=== PATIENT | female | born 1950 | race Caucasian/White ===

== ENCOUNTER 2016-09-13 10:43 | Emergency (ER) | payer MEDICARE, MEDICAID ==
[~2016-09-13] VITALS: Ht 152.4 cm; Wt 92.7 kg
[~2016-09-13 10:43] MED LIST: METF500T4 PO
[2016-09-13 10:50] VITALS: BP 150/80; PULSE 76; RESP 16; O2SAT 99
[2016-09-13 11:31] LABS: BASOPHILS % (AUTO) 0.5 % (0-3); EOSINOPHILS % (AUTO) 0.7 % (0-5); Mean Corpuscular Hemoglobin 29.8 pg (27.0-35.0); Mean Corpuscular Volume 91.8 fL (81-100); Platelet Count 268 bil/L (150-400)
[2016-09-13] MEDS ORDERED: Promethazine 12.5 mg/50 mL-NS 12.5 MG in IV Premix 1 EACH IV ONE (11:45)
--- NOTE | 2016-09-13 11:52 | ED.REPORT ---
HPI-Dizziness / Weakness Date of Service Sep 13, 2016 ED Provider: Rene Hebert MD The patient is a 65 year old female with history of hypertension and diabetes mellitus who was sent to the emergency department from urgent care for a RBBB that was seen on her EKG. The patient went to urgent care for dizziness that has been ongoing for the last week. She describes it as room-spinning and feeling like she might pass out. With the dizziness has also experienced nausea and diaphoresis. Her symptoms have worsened since onset. Her symptoms are exacerbated with change in position, head movement, or bending over. Her symptoms are improved with lying flat and rest. She has also noticed trouble balancing with ambulation, she states that this is different than the dizziness. She has intermittent palpitations that feel like a skipped beat. She denies chest pain, shortness of breath, numbness, weakness, speech changes, vomiting, fever or chills. Nursing Notes Stated Complaint: IRREGULAR HEART BEAT Chief Complaint: Dysrhythmia/Cardiac Nursing Notes Reviewed: Yes ([employer], [employer] not reconciled) Allergies: Coded Allergies: Sulfa (Sulfonamide Antibiotics) (Verified Allergy, Unknown, hives, 09/13/16 ) iodine (Verified Allergy, Unknown, hives, 09/13/16) Scheduled Metformin (Metformin) 500 Mg Tablet 500 MG PO BIDWM Scheduled PRN Meclizine (Bonine) 25 Mg Tab.chew 25 MG PO TID PRN PRN vertigo Promethazine (Promethazine) 25 Mg Tablet 25 MG PO Q6H PRN PRN vertigo General Time Seen by MD: 11:19 Chief Complaint Dizzy Hx Obtained From: Patient, Spouse Arrived By: Walk-in Onset Occurred: More than a week ago... Symptom Duration: Intermittent Location: : No pain Severity: Current: No pain currently Severity: Maximum: No pain Recent Healthcare: No recent hospitalization, Recent doctor visit Similar Sx Previous: No Past Medical History Past Medical History DM HTN Sciatica Past Surgical History Reports: Cholecystectomy Family History Noncontributory Smoking History Current Every Day Smoker Social History Other Social History: Good social support, Local resident Ambulatory Status Independent Review of Systems Constitutional: Denies: Chills, Fever Respiratory: Denies: Shortness of breath Cardiovascular: Reports: Palpitations (chronic, intermittent), Denies: Chest pain GI: Reports: Nausea, Denies: Vomiting Skin: Reports Diaphoresis Neurologic: Reports: Dizziness, Lightheaded, Problem walking (due to poor balance), Spinning sensation, Denies: Focal weakness, Numbness, Slurred speech, Unable to speak Complete sys rev & neg: except as marked. Physical Exam Initial Vital Signs Vital Signs (First) Date Time Temp Pulse Resp B/P Pulse Ox O2 Delivery O2 Flow Rate FiO2 09/13/16 10:50 36.8 76 16 150/80 99 Room Air Initial VS: Reviewed, Vital signs abnormal (mild HTN) ENT: Mucous membranes moist, Conjunctiva normal, No scleral icterus Neck: Supple, Non-tender, Full range of motion Abdomen / GI: Soft, Non-tender, No guarding, No rebound, No distention Lymphatic: No lymphadenopathy Extremities: Vascular intact, Neuro intact, No swelling, No tenderness Skin: Warm, Dry, No cyanosis Psychiatric: Mood/affect normal, Behavior normal, Normal thought content General/Constitutional: Awake, Alert Head / Eyes: Atraumatic, Normocephalic, PERRL, EOMI, No nystagmus, Conjunctiva NL Respiratory / Chest: Atraumatic, Breath sounds NL, Breath sounds = bilat, No respiratory distress, No rales, No rhonchi, No wheezing Cardiovascular: Heart rate NL, Regular rhythm, Heart sounds NL, No gallop, No murmurs, No rubs, Cap refill not delayed, Peripheral circulation NL Neurologic: Oriented X3, Speech NL, No motor deficits, No sensory deficits, CN II - XII intact, Cerebellar NL, Memory NL Wrist / Hand: Neurologic intact, Vascular intact 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 Interpretation & Diagnostics Lab Results Interpretation Result Diagram: 09/13/16 1110 09/13/16 1110 Test 09/13/16 11:10 White Blood Count 12.7th/mm3 (3.8-10.1) Red Blood Count 4.97mil/mm3 (3.90-5.20) Hemoglobin 14.8g/dL (12.0-15.6) Hematocrit 45.6% (35.0-46.0) Mean Corpuscular Volume 91.8fL (81-100) Mean Corpuscular Hemoglobin 29.8pg (27.0-35.0) Mean Corpuscular Hemoglobin Concent 32.5% (32.0-37.0) Red Cell Distribution Width 14.4% (12.3-15.4) Platelet Count 268bil/L (150-400) Neutrophils (%) (Auto) 67.0% (40-74) Lymphocytes (%) (Auto) 25.6% (14-46) Monocytes (%) (Auto) 6.0% (4-12) Eosinophils (%) (Auto) 0.7% (0-5) Basophils (%) (Auto) 0.5% (0-3) Sodium Level 137mEq/L (134-144) Potassium Level 3.8mEq/L (3.5-5.2) Chloride Level 96mEq/L (97-108) Carbon Dioxide Level 26mmol/L (18-29) Blood Urea Nitrogen 11mg/dL (8-27) Creatinine 0.65mg/dL (0.57-1.00) Estimat Glomerular Filtration Rate 130mL/min (>59) Glucose Level 163mg/dL (60-99) Calcium Level 9.7mg/dL (8.5-10.1) Magnesium Level 1.9mg/dL (1.6-2.6) Total Bilirubin 0.2mg/dL (0.0-1.2) Aspartate Amino Transf (AST/SGOT) 13U/L (0-50) Alanine Aminotransferase (ALT/SGPT) 14U/L (0-32) Alkaline Phosphatase 122U/L (25-165) Troponin T < 0.010ug/L (0.0-0.011) Total Protein 8.0g/dL (6.4-8.4) Albumin 4.0g/dL (3.4-5.0) Thyroid Stimulating Hormone (TSH) 1.760uIU/mL (0.450-4.500) Lab Results Interpretation: CBC mild leukocytosis - patient has no clinical findings of infection CMP normal Troponin negative TSH nl ECG Interpretation ECG Interpretation: Normal sinus rhythm RBBB No dysrhythmia No signs of Brugada syndrome Unchanged from urgent care EKG but no previous available Time: 11:30 Interpreted by: ED physician X-Ray Chest Interpretation Chest Xray Interpretation: IMPRESSION: No acute pulmonary process. Dictated by: Laina Andersen M.D. on 09/13/2016 at 13:32 Interpretation / Wet Read by: Interpret - Radiologist Re-Eval/Medical Decision Med Decision/Clinical Course This is a 65-year-old female whose chart says she is here for palpitations and near syncope. She was sent over from urgent care after an EKG demonstrated a right bundle branch block. However when I interviewed the patient she gives a history strongly suggestive of vertigo. She reports have the past several days that started while she was in bed turning over she has terrible sense of spinning, nausea and feels off balance as if the world was moving on her. If she holds still symptoms resolve. But they Been repeatedly reoccurring with movement. At times will spins and when she does she staggers that she walks down the reece having to brace herself against the wall. She has had no trauma, no tenderness, no recent fevers or infections. She has no previous history of vertigo. She decided that she should go have her blood pressure checked and she wanted no for blood pressure might be playing a role in her symptoms, and was noted by I standers that had a bout of vertigo or bouncing off, so they recommended she go to urgent care-which she did because she could not even get the blood pressure monitor to register a value, and with her symptoms obtain an EKG which revealed a right bundle branch block and she was sent to the ED. She does admit to having sporadic palpitations of a skipped beat now and then-not any sort of sustained palpitations-but states this is been unchanged for years and is not the reason that brought her to the ED. She does report again a sense of spinning, nausea, sweating, but it is precipitated by sudden movements of the head to either direction, bending over or standing up, returning rapidly. He reports that lying still here in the department she has no symptoms. She denies headache. She has no nystagmus. She has no focal deficits on exam. I am not able to localize a specific side on history or exam Overall her history is strongly indicative of peripheral vertigo. I am not finding indication of red flags to necessitate acute emergent neuro imaging. Did have an EKG which does reveal a right bundle branch block, no acute ischemic changes, no prior EKGs available. Labs are normal except for mild leukocytosis, but the patient has no features or findings suggest an active bacterial infection. The patient received meclizine and a dose of Phenergan and feels much improved. She still has mild symptoms but is able to ambulate, turn her head and function. She requests discharge. I think this is reasonable. Everything at this stage suggests acute peripheral vertigo. The symptomatic management is warranted. Driving precautions reviewed. Routine and discharge precautions also reviewed with the period. The patient's been discharged on a recommended course of meclizine with some when necessary promethazine. sHe is discharged ambulatory in much improved condition. Source of Hx: Old records, Family Re-Evaluation/Progress #1: Time of Eval: 13:00 Re-Evaluation/Progress Note: The patient is sleeping comfortably. Re-Evaluation/Progress #2: Time of Eval: 13:27 Re-Evaluation/Progress Note: The patient is awake and feels much better. She is able to ambulate without any symptoms. Differential Diagnosis: Positive: Vertigo, peripheral, Negative: Acute coronary syndrome, Anemia, Carbon monoxide poisoning, Electrolyte disorder, Guillain-[place] syndrome, Heat exhaustion, Heat stroke, Hyperventilation syndrome, Hypothyroidism, Intracranial bleed, Pulmonary embolus , Rheumatologic disease, Sepsis, Subarachnoid hemorrhage, Vertebrobas insufficiency, Vertigo, central Counseled Regarding: Diagnosis, Lab results, Need for follow-up, When/why to return to ED Patient Discharge & Departure Impression: Primary Impression: Peripheral vertigo Laterality: unspecified laterality Qualified Code: H81.399 - Other peripheral vertigo, unspecified ear Disposition: Home Discharge Condition All VS Reviewed: Yes Condition: Stable Additional Instructions: 1. Your blood tests were normal. 2. Your EKG has a pattern called a "right bundle branch block", but this is a description of the *electrical* pattern of the way electricity is conducted and does NOT mean there are any blockages of the arteries of the heart (heart disease) 3. Your symptoms are classic for peripheral vertigo. 4. Although annoying, symptoms are expected to improve with time. For now MOVE SLOWLY. Turning your head or bending over typically provokes these symptoms. No DRIVING until symptoms resolve. 5. Take meclizine 25mg three times a day NEEDED for dizziness. This medicine helps reduce the frequency and severity of symptoms, but does not always make them completely resolve. 6. If needed, you can also take promethazine 25mg up to three times a day as well. NOTE: This medication causes some drowsiness. No driving for at least 4 hours after taking. 7. Symptoms are expected to resolve with time (likely over the next week) 8. If symptoms are worsening or you are not safe at home, return to the ED 9. If symptoms are worsening, but do not resolve, follow up with Dr. Ridley. Referrals: Srinivas Ridley MD (PCP) Scribe Attestation Portions of this note were transcribed by Nadira Byrd. I, Dr. Hebert personally performed the history, physical exam and medical decision-making; I reviewed and confirmed the accuracy of the information in the transcribed note. Signed by: Sanaz Rodriguez, 09/13/2016 and 1420. Srinivas Ridley MD, Matthew F MD Sep 13, 2016 11:52 Nadira Byrd Sep 13, 2016 11:58
[2016-09-13 12:00] VITALS: BP 144/55; PULSE 64; RESP 18; O2SAT 96
[2016-09-13 12:03] VITALS: BP 161/64; PULSE 69; RESP 23; O2SAT 94
[2016-09-13 12:06] VITALS: BP 172/69; PULSE 73; RESP 18; O2SAT 92
[2016-09-13 12:08] LABS: Magnesium 1.9 mg/dL (1.6-2.6)
[2016-09-13 12:11] LABS: TROPONIN T < 0.010 ug/L (0.0-0.011)
--- NOTE | 2016-09-13 13:34 | DRSVH ---
PROCEDURE: X-RAY CHEST ONE VIEW, PORTABLE ([id number]) INDICATIONS: near syncope, palpitations TECHNIQUE: One view of the chest was acquired. COMPARISON: [facility], , CHEST 2VW, 01/15/2014, 8:59. FINDINGS: Surgical changes and devices: None. Lungs and pleura: No pleural effusions or pneumothorax. Lungs are clear. Mediastinum: Mediastinal contours appear normal. Heart size is normal. Bones and chest wall: No suspicious bony lesions. Overlying soft tissues appear unremarkable. IMPRESSION: No acute pulmonary process. Dictated by: Laina Andersen M.D. on 09/13/2016 at 13:32 Approved by: Laina Andersen M.D. on 09/13/2016 at 13:32
[2016-09-13] MEDS ORDERED: PROM25TA14 PO (14:10)
[2016-09-13] MEDS ORDERED: MECL-114 PO (14:10)
[2016-09-13 14:26] VITALS: BP 126/51; PULSE 65; RESP 16; O2SAT 95
== END 2016-09-13 14:28 | disposition home or self-care (01) ==
LOC: SED 10:43
DX: H81.399 Other peripheral vertigo, unspecified ear (principal); E11.59 Type 2 diabetes mellitus with other circulatory complications; I10 Essential (primary) hypertension; F17.200 Nicotine dependence, unspecified, uncomplicated; Z88.2 Allergy status to sulfonamides; Z79.84 Long term (current) use of oral hypoglycemic drugs
CPT/HCPCS: 36415; 71010; 80053; 82962; 83735; 84443; 84484; 85025; 93005; 96374; 99285; G0463; J2550